=== PATIENT | female | born 1925 | race Hispanic/Latino ===

== ENCOUNTER 2017-01-12 15:45 | Observation (INO) | payer MEDICARE ==
[2017-01-12 15:56] VITALS: BMI 26.4
--- NOTE | 2017-01-12 16:18 | ED PDOC ---
Arrival/HPI - General Historian: Patient - History of Present Illness Time/Duration: Prior to Arrival Symptom Onset: Gradual - General Chief Complaint: Altered Mental Status Time Seen by Provider: 01/12/17 16:04 - Critical Care Narrative Critical Care (Text): 01/12/17 16:13 89 y/o female with hx Afib, pulmonry HTN, urinary retention with chronic baig catheterization and recurrent UTI presenting from physical therapy facility with reports of altered mental status. Daughter is at bedside and states her mother is has been confused. The patient was recently admitted to [facility] with UTI and discharged to [facility] for physical rehab. Patient and daughter deny fever, chills, fall or head injury or abdominal pain. She is compliant with her medications. (Eber Eason) Past Medical History - Provider Review Nursing Documentation Reviewed: Yes - Infectious Disease Hx of Infectious Diseases: None - Tetanus Immunization Tetanus Immunization: Unknown - Cardiac Hx Congestive Heart Failure: Yes - Pulmonary Hx Respiratory Disorders: No - Neurological Hx Neurological Disorder: Yes Hx Dizziness: Yes - HEENT Hx HEENT Disorder: Yes Hx Cataracts: Yes (with laser sx) Hx Deafness: Yes - Renal Hx Renal Disorder: No - Endocrine/Metabolic Hx Hypothyroidism: Yes - Hematological/Oncological Hx Blood Disorders: No - Integumentary Hx Dermatological Disorder: Yes (BILATERA LOWER EXTREMITY EDEMA) - Musculoskeletal/Rheumatological Hx Arthritis: Yes - Gastrointestinal Hx Gastrointestinal Disorders: Yes (CONSTIPATION,FECAL IMPACTION,CHOLECYSTECTOMY ) - Genitourinary/Gynecological Hx Genitourinary Disorders: Yes (UTI,UROSEPSIS,URINARY RETENTION) Hx Reproductive Disorders: No - Psychiatric Hx Psychophysiologic Disorder: Yes Hx Depression: Yes Hx Emotional Abuse: No Hx Physical Abuse: No Hx Substance Use: No - Surgical History Hx Cholecystectomy: Yes Hx Orthopedic Surgery: Yes Hx Valve Replacement: Yes (aortic) - Anesthesia Hx Anesthesia: Yes Hx Anesthesia Reactions: No Hx Malignant Hyperthermia: No - Suicidal Assessment Feels Threatened In Home Enviroment: No Family/Social History - Physician Review Nursing Documentation Reviewed: Yes Family/Social History: Unknown Family HX Smoking Status: Never Smoked Hx Alcohol Use: No Hx Substance Use: No Hx Substance Use Treatment: No Allergies/Home Meds Allergies/Adverse Reactions: Allergies phytonadione (vitamin K1) [phytonadione] Allergy (Verified 01/12/17 16:26) RASH Home Medications: Home Meds Medication Instructions Recorded Confirmed Digoxin [Lanoxin] 0.125 mg PO DAILY 01/12/17 01/12/17 Levothyroxine [Levoxyl] 0.15 mg PO DAILY 01/12/17 01/12/17 Linezolid [Zyvox] 600 mg PO BID 01/12/17 01/12/17 Metoprolol Tartrate [Lopressor] 25 mg PO BID 01/12/17 01/12/17 Simethicone [Mi-Acid Gas Relief] 80 mg PO Q6 PRN 01/12/17 01/12/17 Warfarin [Coumadin] 2 mg PO 1800 01/12/17 01/12/17 Review of Systems - Physician Review All systems were reviewed & negative as marked: Yes - Review of Systems Constitutional: absent: Fatigue, Fevers, Night Sweats Eyes: absent: Vision Changes Respiratory: absent: SOB, Cough, Sputum Cardiovascular: absent: Chest Pain, Palpitations, Calf Pain Gastrointestinal: absent: Abdominal Pain, Nausea, Vomiting Musculoskeletal: absent: Arthralgias, Back Pain, Neck Pain Skin: absent: Rash, Pruritis Neurological: absent: Headache, Dizziness, Focal Weakness Psychiatric: absent: Anxiety, Depression Physical Exam Temperature: Afebrile Blood Pressure: Normal Pulse: Regular Respiratory Rate: Normal Appearance: Positive for: Well-Appearing, Non-Toxic Mental Status: Positive for: Confused - Systems Exam Head: Present: Atraumatic, Normocephalic Pupils: Present: PERRL Extroacular Muscles: Present: EOMI Conjunctiva: Present: Normal Mouth: Present: Moist Mucous Membranes Neck: Present: Normal Range of Motion. No: Meningeal Signs Respiratory/Chest: Present: Clear to Auscultation, Good Air Exchange. No: Respiratory Distress, Wheezes, Rhonchi Cardiovascular: Present: Regular Rate and Rhythm, Normal S1, S2 Abdomen: Present: Normal Bowel Sounds. No: Tenderness, Distention, Peritoneal Signs Genitourinary/Pelvic Exam: Present: Other (+ baig catheter ) Upper Extremity: Present: Normal Inspection. No: Cyanosis, Edema Lower Extremity: Present: Normal Inspection, NORMAL PULSES. No: Edema, CALF TENDERNESS Neurological: Present: GCS=15, CN II-XII Intact, Speech Normal, Motor Func Grossly Intact, Normal Sensory Function Skin: Present: Warm, Dry. No: Rashes Psychiatric: Present: Alert, Normal Insight, Normal Concentration Vital Signs Temp Pulse Resp BP Pulse Ox 01/12/17 17:52 63 18 141/71 96 01/12/17 16:11 98.1 F 60 18 137/75 96 Medical Decision Making ED Course and Treatment: 01/12/17 16:23 89 y/o female with hx Afib, pulmonary HTN, urinary retention, chronic baig catheterization, recurrent UTI presenting with altered mental status. Altered mental status is likely 2/2 UTI given her hx and chronic catheterization. Patient does no exhibit focal neurological deficits. - CBC - CMP - blood culture - urine culture - CT head - will reassess. 01/12/17 18:24 CT head results reviewed No intracranial mass, hemorrhage or evidence of acute infarct. Age related involutional change. Old left cerebellar hemispheric infarct. Limited evaluation of posterior fossa. Lab results reviewed. There is no leukocytosis. Urine reveals moderate leuk esterase, many bacteria. Case discussed with Dr. Larson who agrees to admit the patient to observation for altered mental status. Neurology consulted, Dr. Carroll, at the request of primary. (Eber Eason) Seen and examined with resident. 89 y/o F with ongoing treatment for UTI with chronic indwelling baig sent from rehab for acute confusion. Labs and Head CT unremarkable. Dr. Larson saw patient in ER, accepts patient to his service. Neurology consult placed with Dr. Sunshine. (Ebre Munoz) - Lab Interpretations Lab Results: 01/12/17 16:45 01/12/17 16:45 Lab Results 01/12/17 18:00: Urine Color Yellow, Urine Appearance Clear, Urine pH 6.0, Ur Specific Dike 1.025, Urine Protein 100 H, Urine Glucose (UA) Negative, Urine Ketones Negative, Urine Blood Large H, Urine Nitrate Negative, Urine Bilirubin Negative, Urine Urobilinogen 0.2, Ur Leukocyte Esterase Moderate H, Urine RBC 25 - 30, Urine WBC 25 - 30, Ur Epithelial Cells 6 - 8, Amorphous Sediment Small , Urine Bacteria Many, Hyaline Casts 0 - 2, Urine Other Uyeast 01/12/17 16:45: WBC 5.7, RBC 3.10 L, Hgb 10.3 L, Hct 31.6 L, MCV 101.9, MCH 33.2 , MCHC 32.6, RDW 17.5 H, Plt Count 171, MPV 12.1 H, Gran % 63.6, Lymph % (Auto) 22.2, [place] % (Auto) 8.6 H, Eos % (Auto) 2.6, Baso % (Auto) 3.0, Gran # 3.60, Lymph # 1.3, [place] # 0.5, Eos # 0.2, Baso # 0.17, Sodium 138, Potassium 4.7, Chloride 101, Carbon Dioxide 27, Anion Gap 15, BUN 21, Creatinine 0.9, Est GFR ( Amer) > 60, Est GFR (Non-Af Amer) 59, Random Glucose 89, Calcium 9.1, Total Bilirubin 1.0, AST 40 H, ALT 9, Alkaline Phosphatase 56, Total Protein 8.0 , Albumin 4.4, Globulin 3.7, Albumin/Globulin Ratio 1.2, Digoxin 0.6 L - RAD Interpretation Radiology Orders: 01/12/17 16:08 CHEST PORTABLE [RAD] Stat 01/12/17 16:27 HEAD W/O CONTRAST [CT] Stat Disposition/Present on Arrival - Present on Arrival Any Indicators Present on Arrival: No History of DVT/PE: Yes History of Uncontrolled Diabetes: No Urinary Catheter: Yes History Surgical Site Infection Following: None - Disposition Have Diagnosis and Disposition been Completed?: Yes Disposition Time: 18:28 Patient Plan: Admission - Disposition Diagnosis: Altered mental status Disposition: HOSPITALIZED Patient Problems: Current Active Problems Problem Status Diagnosed Altered mental status Acute Anemia Acute Aortic valve disorder Acute Aortic valve prosthesis present Acute Cardiac pacemaker in situ 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
--- NOTE | 2017-01-12 16:32 | RAD ---
HISTORY: AMS COMPARISON: 09/12/2016 FINDINGS: LUNGS: No active pulmonary disease. PLEURA: No significant pleural effusion identified, no pneumothorax apparent. CARDIOVASCULAR: Severe cardiomegaly OSSEOUS STRUCTURES: No significant abnormalities. VISUALIZED UPPER ABDOMEN: Normal. OTHER FINDINGS: Sternal wires. Dual lead pacemaker IMPRESSION: No active disease.
[2017-01-12 16:53] LABS: ADD MANUAL DIFF? NO
[2017-01-12 17:07] LABS: BASO # 0.17 K/mm3 (0.0-2.0); EOS # 0.2 (0.0-0.7); EOS % 2.6 % (1.5-5.0); GRAN % 63.6 % (50.0-68.0); HEMATOCRIT 31.6 % (36.0-48.0); LYMPH # 1.3 (1.2-3.4); LYMPH % 22.2 % (22.0-35.0); MEAN CELL VOLUME 101.9 fL (80.0-105.0); MEAN CORPUSCULAR HEMOGLOBIN 33.2 pg (25.0-35.0); MEAN CORPUSCULAR HGB CONC 32.6 g/dl (31.0-37.0); MEAN PLATELET VOLUME 12.1 fl (7.0-11.0); MONO # 0.5 (0.1-0.6); MONO % 8.6 % (1.0-6.0); PLATELET COUNT 171 10^3/uL (120.0-450.0); RED CELL DISTRIBUTION WIDTH 17.5 % (11.5-14.5); WHITE BLOOD COUNT 5.7 10^3/ul (4.5-11.0)
[2017-01-12 17:14] LABS: ALB/GLOB RATIO 1.2 (1.1-1.8); ALKALINE PHOSPHATASE 56 U/L (38-133); ALT/SGPT 9 U/L (7-56); AST/SGOT 40 U/L (15-39); BLOOD UREA NITROGEN 21 mg/dL (7-21); CALCIUM 9.1 mg/dL (8.4-10.5); CARBON DIOXIDE 27 mmol/L (21-33); CHLORIDE 101 mmol/L (98-107); GFR AFRICAN-AMERICAN > 60; GLUCOSE,RANDOM 89 mg/dL (70-110); POTASSIUM 4.7 mmol/L (3.6-5.0); SODIUM 138 mmol/L (132-148)
[2017-01-12 18:17] LABS: URINE BILIRUBIN NEGATIVE (NEGATIVE); URINE BLOOD LARGE (NEGATIVE); URINE GLUCOSE (UA) NEGATIVE (NEGATIVE); URINE KETONE NEGATIVE (NEGATIVE); URINE LEUKOCYTE ESTERASE MODERATE Leu/uL (NEGATIVE); URINE PROTEIN 100 mg/dL (<30 mg/dL); URINE UROBILINOGEN 0.2 E.U./dL (<1 E.U./dL)
[2017-01-12 18:19] LABS: URINE APPEARANCE CLEAR (CLEAR); URINE COLOR YELLOW (YELLOW)
--- NOTE | 2017-01-12 18:21 | CT ---
PROCEDURE: CT HEAD WITHOUT CONTRAST. HISTORY: altered mental status COMPARISON: 11/26/2015 TECHNIQUE: Axial computed tomography images were obtained through the head/brain without intravenous contrast. Radiation dose: Total exam DLP = 725.84 mGy-cm. FINDINGS: Evaluation of the posterior fossa is limited due to patient motion artifact. HEMORRHAGE: No intracranial hemorrhage. BRAIN: No mass effect or edema. Moderate diffuse age-appropriate cerebral atrophy. Moderate periventricular white matter lucency with patchy areas of deep white matter lucency, consistent with age related microvascular ischemic change. No evidence of acute infarct. Old left cerebellar hemispheric infarct. VENTRICLES: No hydrocephalus. Cavum septum pellucidum. CALVARIUM: Unremarkable. PARANASAL SINUSES: Unremarkable as visualized. No significant inflammatory changes. MASTOID AIR CELLS: Unremarkable as visualized. No inflammatory changes. OTHER FINDINGS: None. IMPRESSION: No intracranial mass, hemorrhage or evidence of acute infarct. Age related involutional change. Old left cerebellar hemispheric infarct. Limited evaluation of posterior fossa.
[2017-01-12 18:22] LABS: URINE RBC 25 - 30 /hpf (0-2); URINE WBC 25 - 30 /hpf (0-6)
[2017-01-12 18:23] LABS: URINE AMORPHOUS SEDIMENT SMALL; URINE BACTERIA MANY (NEG)
[2017-01-12] MEDS ORDERED: cefTRIAXone 1 gm 100 ML IVPB STA (18:48)
[2017-01-12] MEDS ORDERED: Simethicone 80 mg Chewtab PO PRN (21:36)
[2017-01-12] MEDS ORDERED: Sodium Chloride 0.45% 1,000 ML IV SCH (21:45)
[2017-01-13] MEDS: Piperacillin/Tazobact 2.25gm 100 ML IVPB SCH ×4 (03:04→18:47)
[2017-01-13 06:54] LABS: ALB/GLOB RATIO 1.2 (1.1-1.8); ALKALINE PHOSPHATASE 47 U/L (38-133); ALT/SGPT 13 U/L (7-56); AST/SGOT 27 U/L (15-39); BLOOD UREA NITROGEN 20 mg/dL (7-21); CALCIUM 8.5 mg/dL (8.4-10.5); CARBON DIOXIDE 26 mmol/L (21-33); CHLORIDE 105 mmol/L (98-107); GFR AFRICAN-AMERICAN > 60; GLUCOSE,RANDOM 82 mg/dL (70-110); POTASSIUM 4.2 mmol/L (3.6-5.0); SODIUM 139 mmol/L (132-148); TOTAL PROTEIN 6.5 g/dL (5.8-8.3)
[2017-01-13 06:55] LABS: HEMATOCRIT 27.7 % (36.0-48.0); MEAN CELL VOLUME 101.5 fL (80.0-105.0); MEAN CORPUSCULAR HEMOGLOBIN 33.3 pg (25.0-35.0); MEAN CORPUSCULAR HGB CONC 32.9 g/dl (31.0-37.0); MEAN PLATELET VOLUME 11.2 fl (7.0-11.0); RED CELL DISTRIBUTION WIDTH 17.2 % (11.5-14.5); WHITE BLOOD COUNT 3.8 10^3/ul (4.5-11.0)
[2017-01-13 07:20] LABS: INR 2.05 (0.93-1.08)
[2017-01-13 07:22] VITALS: RESP 20
--- NOTE | 2017-01-13 07:42 | HP ---
HISTORY OF PRESENT ILLNESS: I know the patient from house calls. She was recently at [facility] and she went to [facility] subacute rehabilitation. The son called me looking for me and wanted to know where I was and I said, "I don't go to that rehab" and he brought the patient to [facility] because she was not getting better there. She had change in mentation and he felt that she was not improving, so she is in the Emergency Room with change in mental status after being in the at [facility] and in [facility]. She is an 89-year-old female with A-Fib, pulmonary hypertension, urinary retention, chronic Johnson catheterization, recurrent UTIs, also going to physical therapy altered mental status. She is quite confused and they think that the medicines are not working at [facility] at this time. They asked me to take care of her at this time. PAST MEDICAL HISTORY: She does have congestive heart failure, dizziness. She had laser eye surgery. hearing or deaf. She is hypothyroid, bilateral lower extremity edema, arthritis, constipation, fecal impaction, cholecystectomy, urinary tract infection, urosepsis, urinary retention, depression, cholecystectomy, orthopedic surgery, aortic valve replacement. FAMILY HISTORY: Hypertension in the family. SOCIAL HISTORY: She never smoked, no alcohol, no drugs. ALLERGIES: SHE IS ALLERGIC TO VITAMIN K. MEDICATIONS: She takes Lanoxin, Levoxyl, Zyvox, Lopressor, simethicone, Coumadin and the AFib. She also had a DVT in the past. REVIEW OF SYSTEMS: No acute vision loss. No acute hearing loss, but old. No sore throat, no neck pain, no chest pain, no palpitations, no shortness of breath, no coughing. No abdominal pain, no constipation, diarrhea. She is altered mentally no headache, no dizziness. Not anxious, not depressed. PHYSICAL EXAMINATION: VITAL SIGNS: She has 98.1 temperature, 60 pulse, 18 respiratory rate, 137/75 blood pressure, 96% O2 sat on room air. GENERAL: She is well-appearing, nontoxic, definitely confused. HEENT: Head is atraumatic, normocephalic. Extraocular muscles are intact. Pupils are reactive to light. Throat is moist, no erythema. NECK: Supple, no JVD. HEART: Regular rate. Normal S1, S2. LUNGS: Decreased breath sounds but good air exchange. ABDOMEN: Soft, nontender, positive bowel sounds. No CVA tenderness. No guarding or rebound. There is a Johnson catheter present. Will have to change the Johnson. EXTREMITIES: There is trace edema in the lower extremities. NEUROLOGIC: GCS is 15. Cranial nerves II-XII are grossly intact. SKIN: Warm and dry. NEUROLOGIC: She is alert, smiling, pleasantly confused. LABORATORY DATA: She has a digoxin level of 0.6. She has large blood, moderate leukocytes, many bacteria in the urine. She has a 138 sodium, potassium 4.7, BUN 21, creatinine 0.9, GFR is 59, sugar is 89, calcium is 9.1, total bili is 1, AST is 40, ALT is 9, alkaline phosphatase 56, total protein is 8, albumin is 4.4. White count is 5.7, hemoglobin 10.3, hematocrit 31.6, platelets. She had a chest x-ray done, no acute disease. CAT scan of the head, no intracranial mass, hemorrhage, or evidence of acute infarct. There is age- related involutional change, old cerebral hemispheric infarct. urinary tract infection although the patient was on Zyvox and multiple other medications. She was given Rocephin in the Emergency Room. I will continue that. IV fluids , Rocephin, her regular medications. We will check her labs tomorrow. We will order physical therapy, consult with neurology; change in mentation. Will also get infectious disease for IV antibiotics or a resistant urinary tract infection. We will do urine cultures and sensitivity, blood cultures. She is here for change in mentation, urinary tract infection. Faisal Larson DO cc: [id number] TT: 01/13/2017 04:12:56 bakari 01/13/2017 06:41:53 ADELAIDA
--- NOTE | 2017-01-13 09:07 | CARD ---
APPROVED REPORT EKG Measurement Heart [id number] <Conclusion> Atrial fibrillation Left axis deviation Inferior infarct, age undetermined Cannot rule out Anterior infarct, age undetermined Abnormal ECG
[2017-01-13] MEDS ORDERED: Levothyroxine 150 MCG TAB PO SCH (10:00)
[2017-01-13] MEDS ORDERED: cefTRIAXone 1 gm 100 ML IVPB SCH (10:00)
--- NOTE | 2017-01-13 10:36 | DS ---
She is resting comfortably in bed. She is alert, a little less confused than the other day. She cam e in very confused. Awaiting for neuro and infectious disease to look at her. Infectious disease di jose change her antibiotics around, which is good. Waiting for neuro to see if they want to do anything on this 89-year-old. She is on IV fluids, Colace, Coumadin, Lanoxin, Lopressor, Mylicon, Rocephin which was discontinued, now she is on Zosyn. She is on Synthroid. PHYSICAL EXAMINATION: VITAL SIGNS: Temp 98.4, 69 pulse, 133/73 blood pressure, 20 respiratory rate, 97% O2 sat on room air . HEENT: Head is atraumatic, normocephalic. HEART: Regular rate. LUNGS: Decreased breath sounds but clear. ABDOMEN: Soft. EXTREMITIES: No edema. She had her antibiotics changed by infectious disease. I want to know if neuro wants to do anything about her change in mentation. She is here for observation. She came from [facility]. Family does not want her to go back to [facility]. They want her to go to [facility]. I would love to send her to [facility] today on the same medication she is taking now and follow her there for physical therapy, subacut e rehabilitation. She did originally come from [facility]. I will reach out to soci al worker and case management to help me with this and hopefully we can arrange that today if neurolo gy does not have that many tests to perform, so I am looking for a discharge on this young lady who i s change in mentation, urinary tract infection and she needs physical therapy. Faisal Larson DO cc: [id number] TT: 01/13/2017 10:35:35 en
--- NOTE | 2017-01-13 12:06 | CON ---
DATE: 01/13/2017 CHIEF COMPLAINT: Confusion. HISTORY OF PRESENT ILLNESS: This is an 89-year-old woman with history of atrial fibrillation on Coum comfort and digoxin, history of hypertension, pulmonary hypertension, urinary retention, chronic Johnson c atheter, recurrent UTIs, who [facility] where she w as getting more lethargic and more confused; therefore, was brought in for further management of her change in mental status. Apparently at the [facility], she was given some pain medication which th rew her over the edge in terms of confusion. Otherwise, her CT head showed no acute intracranial abn ormalities. Currently, she is sitting up with the family members, following all commands, smiling an d moving all extremities without any difficulty. PAST MEDICAL HISTORY: History of A-fib, pulmonary hypertension, urinary retention, chronic Johnson cat heterization, recurrent UTIs, deconditioned state. FAMILY HISTORY: Hypertension in the family. SOCIAL HISTORY: No illicit drug use, smoking, or ETOH abuse. ALLERGIES: ALLERGIC TO VITAMIN K. MEDICATIONS: Reviewed via nurse's reconciliation sheet. REVIEW OF SYSTEMS: A 14-point review of systems is negative except for the HPI. PHYSICAL EXAMINATION: VITAL SIGNS: Temperature 98.4, pulse rate of 69, blood pressure 133/73, respiratory rate of 20, oxyg en saturation 97% via room air. GENERAL: The patient is sitting up in bed in no acute distress. HEENT: Atraumatic, normocephalic. PERRLA. Extraocular muscles intact. NECK: Supple, no JVD, no adenopathy noted. LUNGS: Clear to auscultation. No adventitious sounds. HEART: S1, S2, normal rate and rhythm. No murmurs, rubs, or gallops. ABDOMEN: Soft, nontender, nondistended. Bowel sounds present. EXTREMITIES: Mild trace edema in the lower extremities. Peripheral pulses 2+ felt bilaterally. NEUROLOGIC: The patient is alert, oriented to person, place and year. Recall after 5 minutes is 0/3 . Poor attention span. slowed thought process. Cranial nerves II-XII are intact. MOTOR: Slight increased tone throughout. Moves all extremities equally. No pronator drift seen. D TRs are 1+ throughout. SENSORY: Light touch, pinprick, proprioception, vibration intact. DTRs are 1+ throughout. COORDINATION: [id number] intact. Gait is deferred for now. LABORATORY DATA: Sodium is 139, potassium 4.2, chloride 105, carbon dioxide 26, BUN of 20, creatinin e 0.9, random glucose of 82. ASSESSMENT AND PLAN: This is an 89-year-old woman with history of atrial fibrillation on warfarin an d digoxin, pulmonary hypertension, urinary retention, chronic Johnson catheterization, recurrent urinar y tract infections, who was undergoing antibiotic management for her underlying large urinary tract i nfection and going under subacute rehabilitation at [facility], who was brought in for change in ok ntal status. Apparently, she was given a pain medication which made her more delirious and confused. In addition, she has underlying urinary tract infection, superimposed underlying mild cognitive imp airment status. At this time, it is a combination of medication effect and her underlying chronic ur inary tract infection causing her to have mild confusion. Currently, she is back to her baseline acc ording to family. She is moving all extremities. She is mildly deconditioned. At this time, recomm end: 1. Continue her p.o. antibiotics as an outpatient and will get outpatient physical therapy and home physical therapy according to family at bedside and continue to monitor electrolytes and today's CMP is normal. She is clinically stable from my standpoint to be discharged home. Thank you for this consult. Jong Carroll MD cc: [phone] TT: 01/13/2017 12:05:45 Confirmation # [id number] Dictation # [id number] tn
[2017-01-13] MEDS ORDERED: Digoxin 125 mcg (0.125 mg) Tab PO SCH (14:00)
--- NOTE | 2017-01-13 14:49 | CP.PCM.CON ---
History of Present Illness - History of Present Illness History of Present Illness: 89 year old female with PMH of pulmonary HTN, atrial fibrillation, history of recurrent UTI with chronic Johnson catheterization and urinary retention was brought in to [facility] because of generalized weakness and lethargy since yesterday. She was recently admitted in [facility] because of UTI and was recently in a rehab center. She is now more awake and denies fever or chills, no nausea or vomiting, no chest pain, no SOB, has has some suprapubic discomfort, no diarrhea. Infectious Diseases consult is requested to further evaluate and manage. Review of Systems - Review of Systems All systems: reviewed and no additional remarkable complaints except (as per HPI ) Past Patient History - Infectious Disease Hx of Infectious Diseases: None - Tetanus Immunizations Tetanus Immunization: Unknown - Past Medical History & Family History Past Medical History?: Yes Past Family History: Reviewed and not pertinent - Past Social History Smoking Status: Never Smoked Alcohol: None Drugs: Denies - CARDIAC Hx Congestive Heart Failure: Yes - PULMONARY Hx Respiratory Disorders: No - NEUROLOGICAL Hx Neurological Disorder: Yes Hx Dizziness: Yes - HEENT Hx HEENT Problems: Yes Hx Cataracts: Yes (with laser sx) Hx Deafness: Yes - RENAL Hx Chronic Kidney Disease: No - ENDOCRINE/METABOLIC Hx Hypothyroidism: Yes - HEMATOLOGICAL/ONCOLOGICAL Hx Blood Disorders: No - INTEGUMENTARY Hx Dermatological Problems: Yes (BILATERA LOWER EXTREMITY EDEMA) - MUSCULOSKELETAL/RHEUMATOLOGICAL Hx Arthritis: Yes - GASTROINTESTINAL Hx Gastrointestinal Disorders: Yes (CONSTIPATION,FECAL IMPACTION,CHOLECYSTECTOMY ) - GENITOURINARY/GYNECOLOGICAL Hx Genitourinary Disorders: Yes (UTI,UROSEPSIS,URINARY RETENTION) Hx Reproductive Disorders: No - PSYCHIATRIC Hx Psychophysiologic Disorder: Yes Hx Depression: Yes Hx Emotional Abuse: No Hx Physical Abuse: No Hx Substance Use: No - SURGICAL HISTORY Hx Cholecystectomy: Yes Hx Orthopedic Surgery: Yes Hx Valve Replacement: Yes (aortic) - ANESTHESIA Hx Anesthesia: Yes Hx Anesthesia Reactions: No Hx Malignant Hyperthermia: No Meds Allergies/Adverse Reactions: Allergies Allergy/AdvReac Type Severity Reaction Status Date / Time phytonadione (vitamin K1) Allergy RASH Verified 01/12/17 16:26 [phytonadione] - Medications Medications: Current Medications Acetaminophen (Tylenol 325mg Tab) 650 mg PO Q6H PRN PRN Reason: Pain Digoxin (Lanoxin) 0.125 mg PO 1400 [facility] Docusate Sodium (Colace) 100 mg PO BID [facility] Ceftriaxone Sodium (Rocephin 1 Gram Ivpb) 100 mls @ 100 mls/hr IVPB DAILY [facility] PRN Reason: Protocol Sodium Chloride (Sodium Chloride 0.45%) 1,000 mls @ 30 mls/hr IV .Q24H [facility] Last Admin: 01/12/17 21:54 Dose: 30 mls/hr Levothyroxine Sodium (Synthroid) 150 mcg PO DAILY [facility] Metoprolol Tartrate (Lopressor) 25 mg PO BID [facility] Simethicone (Mylicon Chew Tab) 80 mg PO Q6 PRN PRN Reason: Flatulence Warfarin Sodium (Coumadin) 2 mg PO 1800 [facility] PRN Reason: Protocol Physical Exam - Constitutional Appears: Non-toxic, No Acute Distress - Head Exam Head Exam: NORMAL INSPECTION - ENT Exam ENT Exam: Mucous Membranes Moist - Neck Exam Neck exam: Negative for: Lymphadenopathy, Meningismus - Respiratory Exam Respiratory Exam: Decreased Breath Sounds - Cardiovascular Exam Cardiovascular Exam: +S1, +S2 - GI/Abdominal Exam GI & Abdominal Exam: Soft, Tenderness (some suprapubic tenderness noted) - Back Exam Back exam: absent: CVA tenderness (L), CVA tenderness (R) Results - Vital Signs Recent Vital Signs: Last Vital Signs Temp 97.8 F 01/12/17 21:21 Pulse 67 01/12/17 21:21 Resp 18 01/12/17 21:21 BP 157/73 H 01/12/17 21:21 Pulse Ox 98 01/12/17 21:21 - Labs Result Diagrams: 01/13/17 06:30 01/13/17 06:30 Assessment & Plan - Assessment and Plan (Free Text) Plan: Assessment Consider urinary tract infection in a patient with history of recurrent UTI with chronic Johnson catheterization and urinary retention pulmonary HTN atrial fibrillation Plan Started patient on Zosyn based on previous cultures pending blood and urine cx Will follow clinically
[2017-01-13 15:00] VITALS: PULSE 68
[2017-01-13 18:52] VITALS: PULSE 70
[2017-01-13 18:53] VITALS: BP 118/70
[2017-01-13 19:11] VITALS: TEMP 97.8; O2SAT 99
== END 2017-01-13 21:24 | disposition home or self-care (01) ==
LOC: ED 15:45 → ERH 18:21 → 5RNO 21:33
PROVIDERS: ADMIT Family Medicine; ATTEND Family Medicine
DX: N39.0 Urinary tract infection, site not specified (principal); G31.84 Mild cognitive impairment of uncertain or unknown etiology; D64.9 Anemia, unspecified; E03.9 Hypothyroidism, unspecified; H91.90 Unspecified hearing loss, unspecified ear; I11.0 Hypertensive heart disease with heart failure; I50.9 Heart failure, unspecified; I27.2 Other secondary pulmonary hypertension; I35.9 Nonrheumatic aortic valve disorder, unspecified; I48.91 Unspecified atrial fibrillation; Z79.01 Long term (current) use of anticoagulants; Z79.899 Other long term (current) drug therapy; Z82.49 Family history of ischemic heart disease and other diseases of the circulatory system; Z87.440 Personal history of urinary (tract) infections; Z90.49 Acquired absence of other specified parts of digestive tract; Z95.0 Presence of cardiac pacemaker; Z95.2 Presence of prosthetic heart valve; Z98.49 Cataract extraction status, unspecified eye; M19.90 Unspecified osteoarthritis, unspecified site; K59.00 Constipation, unspecified; F32.89 Other specified depressive episodes; Z88.8 Allergy status to other drugs, medicaments and biological substances; R40.2413 Glasgow coma scale score 13-15, at hospital admission
CPT/HCPCS: 36415; 70450; 71010; 80053; 80162; 81001; 82607; 84145; 84443; 85025; 85027; 85610; 87040; 87086; 93005; 96365; 97162; 97530; 99285; G0378; G8978; G8979; J0696; J2543; J7030